=== PATIENT | male | born 1985 | race African-American/Black ===

== ENCOUNTER 2021-07-27 19:13 | Emergency (ER) | payer OTHER ==
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
== END 2021-07-27 20:32 | disposition home or self-care (01) ==
LOC: VM.ED 19:13
DX: S51.812A Laceration without foreign body of left forearm, initial encounter (principal); S81.012A Laceration without foreign body, left knee, initial encounter; S61.203A Unspecified open wound of left middle finger without damage to nail, initial encounter; S61.205A Unspecified open wound of left ring finger without damage to nail, initial encounter; V54.5XXA Driver of pick-up truck or van injured in collision with heavy transport vehicle or bus in traffic accident, initial encounter
CPT/HCPCS: 71045; 72170; 99283; 99284-25